=== PATIENT | male | born 1990 | race American Indian/Alaskan Native ===

== ENCOUNTER 2018-02-12 01:03 | Emergency (ER) | payer SELFPAY ==
[2018-02-12 01:13] VITALS: BP 157/102
[2018-02-12] MEDS ORDERED: DUONEB *Not for PRN Use IH ONE ×2 (03:06→03:20)
[2018-02-12] MEDS ORDERED: DELTASONE PO ONE (03:59)
--- NOTE | 2018-02-12 03:59 | Emergency Department Report ---
ED Asthma HPI - General Chief Complaint: Adult Asthma Stated Complaint: HERBERT Time Seen by Provider: 02/12/18 03:54 Source: patient Mode of arrival: Ambulatory Limitations: No Limitations - History of Present Illness Initial Comments: 28-year-old known asthmatic comes in complaining of shortness of breathing and wheezing. Patient reports that he ran out of his albuterol inhaler on Monday. Patient reports he isn't using it twice a day. The patient denies any fever chills no nausea no vomiting no chest pain. Patient reports no past medical history currently takes no medications on a daily basis and had no known drug allergies.. MD Complaint: wheezing -: Gradual Asthma History: history of frequent attac Severity: similar to prior Context: ran out of meds Associated Symptoms: none Treatments Prior to Arrival: inhaled bronchodilator - Related Data Current Asthma Therapy: inhaled bronchodilator Home Medications Medication Instructions Recorded Confirmed Last Taken ALBUTEROL Inhaler 2 puff IH BID 02/12/18 02/12/18 Unknown Previous Rx's Medication Instructions Recorded Last Taken Type ALBUTEROL Inhaler [ProAir HFA 2 puff IH QID PRN #1 inhalation 02/12/18 Unknown Rx Inhaler] methylPREDNISolone [Medrol] 4 mg PO QDAY #1 tab.ds.pk 02/12/18 Unknown Rx Allergies Allergy/AdvReac Type Severity Reaction Status Date / Time No Known Allergies Allergy Verified 02/12/18 03:20 ED Review of Systems ROS: Stated complaint: HERBERT Other details as noted in HPI Constitutional: denies: chills, fever Eyes: denies: eye pain, eye discharge, vision change ENT: denies: ear pain, throat pain Respiratory: shortness of breath, wheezing. denies: cough Cardiovascular: denies: chest pain, palpitations Endocrine: no symptoms reported Gastrointestinal: denies: abdominal pain, nausea, diarrhea Genitourinary: denies: urgency, dysuria Musculoskeletal: denies: back pain, joint swelling, arthralgia Skin: denies: rash, lesions Neurological: denies: headache, weakness, paresthesias Psychiatric: denies: anxiety, depression Hematological/Lymphatic: denies: easy bleeding, easy bruising ED Past Medical Hx - Past Medical History Hx Asthma: Yes Additional medical history: Bronchitis - Surgical History Past Surgical History?: No - Social History Smoking Status: Never Smoker Substance Use Type: None - Medications Home Medications: Home Medications Medication Instructions Recorded Confirmed Last Taken Type ALBUTEROL Inhaler 2 puff IH BID 02/12/18 02/12/18 Unknown History ALBUTEROL Inhaler [ProAir HFA 2 puff IH QID PRN #1 inhalation 02/12/18 Unknown Rx Inhaler] methylPREDNISolone [Medrol] 4 mg PO QDAY #1 tab.ds.pk 02/12/18 Unknown Rx ED Physical Exam - General Limitations: No Limitations General appearance: alert, in no apparent distress - Head Head exam: Present: atraumatic, normocephalic - Eye Eye exam: Present: normal appearance - ENT ENT exam: Present: mucous membranes moist - Neck Neck exam: Present: normal inspection - Respiratory Respiratory exam: Present: wheezes (mild inspiratory left upper lobe wheeze). Absent: respiratory distress, chest wall tenderness, accessory muscle use, decreased breath sounds, prolonged expiratory - Cardiovascular Cardiovascular Exam: Present: regular rate, normal rhythm. Absent: systolic murmur, diastolic murmur, rubs, gallop - GI/Abdominal GI/Abdominal exam: Present: soft, normal bowel sounds - Rectal Rectal exam: Present: deferred - Extremities Exam Extremities exam: Present: normal inspection - Back Exam Back exam: Present: normal inspection - Neurological Exam Neurological exam: Present: alert, oriented X3 - Psychiatric Psychiatric exam: Present: normal affect, normal mood - Skin Skin exam: Present: warm, dry, intact, normal color. Absent: rash ED Course Vital Signs 02/12/18 01:07 Temperature 98.3 F Pulse Rate 106 H Respiratory 22 Rate Blood Pressure 157/102 O2 Sat by Pulse 98 Oximetry ED Medical Decision Making - Radiology Data Radiology results: report reviewed, image reviewed FINAL REPORT PROCEDURE: XR CHEST ROUTINE 2V TECHNIQUE: PA and lateral chest radiographs were obtained. CPT 99572 HISTORY: cough and wheezing COMPARISON: No prior studies are available for comparison. FINDINGS: Heart: Normal. Mediastinum/Vessels: Normal. Lungs/Pleural space: Normal. Bony thorax: No acute osseous abnormality. Other: IMPRESSION: Normal examination. Transcribed By: [facility] Dictated By: YOCASTA ORTA MD Electronically Authenticated By: YOCASTA ORTA MD Signed Date/Time: 02/12/18358 DD/ 8 TD/TT: 02/12/18358 - Medical Decision Making Patient's been evaluated by this provider fast track. Patient was given a DuoNeb in triage which she reports has helped a lot. Discussed the patient I will discharge him on albuterol inhaler, Medrol Dosepak. I discussed the patient I will refer him to [facility] for further evaluation and treatment of his chronic asthma. Patient verbalized understanding. Critical care attestation.: If time is entered above; I have spent that time in minutes in the direct care of this critically ill patient, excluding procedure time. ED Disposition Clinical Impression: Medication refill Asthma Qualifiers: Asthma severity: unspecified severity Asthma persistence: unspecified Asthma complication type: unspecified Qualified Code(s): J45.909 - Unspecified asthma, uncomplicated Disposition: - TO HOME OR SELFCARE Is pt being admited?: No Does the pt Need Aspirin: No Condition: Stable Instructions: Asthma (ED) Additional Instructions: Please take prednisone as prescribed. Use her inhaler as prescribed. Follow up with her primary care provider I have listed one below all [facility]. Prescriptions: ALBUTEROL Inhaler [ProAir HFA Inhaler] 2 puff IH QID PRN #1 inhalation PRN Reason: Shortness Of Breath methylPREDNISolone [Medrol] 4 mg PO QDAY #1 tab.ds.pk Referrals: PRIMARY CARE, [Primary Care Provider] - 3-5 Days [facility] [Provider Group] - 3-5 Days Forms: Work/School Release Form(ED)
--- NOTE | 2018-02-12 04:05 | XRay Report ---
FINAL REPORT PROCEDURE: XR CHEST ROUTINE 2V TECHNIQUE: PA and lateral chest radiographs were obtained. CPT 60592 HISTORY: cough and wheezing COMPARISON: No prior studies are available for comparison. FINDINGS: Heart: Normal. Mediastinum/Vessels: Normal. Lungs/Pleural space: Normal. Bony thorax: No acute osseous abnormality. Other: IMPRESSION: Normal examination.
== END 2018-02-12 04:40 | disposition home or self-care (01) ==
LOC: ED 01:03
DX: J45.909 Unspecified asthma, uncomplicated (principal)
CPT/HCPCS: 71046; 93005; 93010; 99283; J7512